=== PATIENT | female | born 1960 | race American Indian/Alaskan Native ===

== ENCOUNTER 2016-08-03 15:23 | Outpatient (CLI) | payer OTHER ==
--- NOTE | 2016-08-03 16:11 | XRay Report ---
Right wrist 3 views: History: Wrist pain. Findings: No articular abnormality. No fracture dislocation or soft tissue calcification. Impression: Essentially negative right wrist.
== END 2016-08-03 15:24 | disposition home or self-care (01) ==
LOC: SPVIMAG 15:23
PROVIDERS: ATTEND Hospitalist
DX: M25.532 Pain in left wrist (principal)